=== PATIENT | female | born 1975 | race Two or more races ===

== ENCOUNTER 2017-07-13 01:15 | Emergency (ER) | payer OTHER ==
--- NOTE | ~2017-07-13 | EKG ---
PATIENT: JOSEFINA CURTIS UNIT #: [id number] Ventricular Rate: 57 BPM Atrial Rate: 57 BPM P-R Interval: 146 ms QRS Duration: 80 ms Q-T Interval: 454 ms QTC Calculation(Bezet): 441 ms P [place]: 40 degrees Calculated R [place]: 45 degrees Calculated T [place]: 49 degrees Diagnosis Line: Sinus bradycardia Diagnosis Line: Otherwise normal ECG Diagnosis Line: No previous ECGs available Diagnosis Line: Confirmed by SHERRILL WILKS MD ([id number]) on Diagnosis Line: 07/13/2017 3:53:08 PM INTERPRETING MD: MIHAI
--- NOTE | ~2017-07-13 | CT71 ---
[facility] A Service of [facility] & [facility] RADIOLOGY TEXT RESULTS PATIENT: JOSEFINA CURTIS LOCATION: [facility] : 75 UNIT #: [id number] AGE: [address]: Juan Daniel Torres MD SEX: F ORDER DR: [id number] [facility] [address]. [place], [place] [address] [id number] E MR#: [id number] Acc #: [id number] NAME: JOSEFINA CURTIS. : 1975 SEX: F STUDY DATE/TIME: 07/13/2017 3:31 UNIT: [facility] ROOM: STUDY DESCRIPTION: CT Head Wo Contrast Attending Physician: Juan Daniel Torres M.D. Ordering Physician: Juan Daniel Torres M.D. Primary Care Physician: Hernán Natarajan M.D. MEDICAL IMAGING REPORT This report is preliminary unless electronic signature is present EXAM CT head, noncontrast, 07/13/2017. HISTORY 42-year-old female in the ED complaining of 3-day history of persistent headache. Now with dizziness, blurred vision and nausea. TECHNIQUE CT examination of the head was performed without IV contrast. This CT exam was performed with one or more of the following radiation dose reduction techniques: automatic exposure control, adjustment of mA and/or kV according to patient size, and iterative reconstruction. FINDINGS The examination is negative. No evidence of intracranial hemorrhage, mass, mass effect, cerebral edema, hydrocephalus or additional abnormality. IMPRESSION Negative head CT examination. Dictated by... Hebert Mendez M.D. THIS IS AN ELECTRONICALLY VERIFIED REPORT Hebert Mendez M.D. at 07/14/2017 6:05 AM CHAYO/billy TD: 07/14/2017 00:49 JOB #: [id number] MEDICAL IMAGING REPORT Page 1 of 1 COPY
[~2017-07-13 01:15] MED LIST: NO MEDICATIONS
[2017-07-13 03:47] LABS: URINE SOURCE CLEAN CATCH
[2017-07-13 03:50] LABS: URINE APPEARANCE CLEAR; URINE BILIRUBIN NEG (NEG); URINE BLOOD NEG (NEG); URINE COLOR YELLOW; URINE GLUCOSE NEG (NEG); URINE KETONE NEG (NEG); URINE LEUKOCYTE ESTERASE 1+ (NEG); URINE NITRATE NEG (NEG); URINE PROTEIN NEG (NEG); URINE SPECIFIC GRAVITY 1.015 (1.003-1.035); URINE UROBILINOGEN 0.2 MG/DL (NEG)
[2017-07-13 03:53] LABS: U HYALINE CASTS AUWI 0-2 /[LPF]; URBCS1 AUWI 0-2 /[HPF] (0-2); URINE BACTERIA AUWI NEG (NEGATIVE); URINE SQUAMOUS EPITHELIAL CELL OCC /[HPF]
[2017-07-13 04:31] LABS: BASOPHIL% 0.3 % (0-2.5); EOSINOPHIL# 0.1 X10e3 (0-0.7); HEMATOCRIT 36.2 % (35.0-45.0); LYMPHOCYTE% 48.4 % (17.0-45.0); MEAN CELL VOLUME 83.1 FL (83-96); MEAN CORPUSCULAR HEMOGLOBIN 27.6 PG (28-34); MEAN CORPUSCULAR HGB CONC 33.3 g/dL (30-36); MEAN PLATELET VOLUME 7.5 FL (6.5-11.5); MONOCYTE# 0.5 X10e3 (0-1.0); MONOCYTE% 8.6 % (3.0-12.0); NEUTROPHIL# 2.6 X10e3 (1.5-7.1); NEUTROPHIL% 40.7 % (40-75); PLATELET COUNT 298 X10e3 (140-420); RED BLOOD COUNT 4.36 X10e (3.90-5.30); WHITE BLOOD COUNT 6.3 X10e3 (4.0-10.5)
[2017-07-13 04:43] LABS: DIFF IND NO
[2017-07-13 04:53] LABS: CALCIUM SERUM 8.6 mg/dL (8.4-10.2); CREATININE SERUM 0.5 mg/dL (0.6-1.4); GLOM FILT RATE Estimated 119.4 mL/min (>60); POTASSIUM 3.7 mmol/L (3.5-5.1)
== END 2017-07-13 05:26 | disposition home or self-care (01) ==
LOC: CED 01:15
PROVIDERS: Emergency Medicine
DX: G44.209 Tension-type headache, unspecified, not intractable (principal)
CPT/HCPCS: 36415; 70450; 80048; 81003; 84703; 85025; 93005; 96361; 96374; 96375; 99284; J1200; J1885; J2765